=== PATIENT | female | born 1985 | race Asian ===

== ENCOUNTER 2019-11-04 23:51 | Emergency (ER) | payer OTHER ==
[~2019-11-04] VITALS: Ht 154.9 cm; Wt 47.6 kg
[2019-11-05 00:27] VITALS: BP_SYST 118
[2019-11-05] MEDS ORDERED: DIPH-TET-PERTUS Vaccine 0.5 ML VIAL (ADACEL) I.M. ONE (00:30)
[2019-11-05] MEDS ORDERED: LIDOCAINE 1% 10 MG/ML, 20 ML MDV INJ ONE (01:15)
[2019-11-05 02:30] VITALS: BP_SYST 116
[2019-11-05] MEDS ORDERED: BACITRACIN 1 GM OINT TP ONE (02:30)
== END 2019-11-05 02:30 | disposition home or self-care (01) ==
LOC: SED 23:51
DX: S61.211A Laceration without foreign body of left index finger without damage to nail, initial encounter (principal); W26.8XXA Contact with other sharp object(s), not elsewhere classified, initial encounter; Y93.89 Activity, other specified; Y92.89 Other specified places as the place of occurrence of the external cause; Y99.8 Other external cause status
CPT/HCPCS: 90715; 99283